=== PATIENT | male | born 1980 | race American Indian/Alaskan Native ===

== ENCOUNTER 2020-12-02 19:51 | Emergency (ER) | payer SELFPAY ==
[2020-12-02] MEDS ORDERED: DIPHTH,PERTUSS(ACELL),TET 0.5 ML DISP.SYRIN IM ONE ×2 (20:03→20:30)
[2020-12-02] MEDS ORDERED: ACETAMINOPHEN 325 MG TABLET (FP) PO ONE (20:06)
[2020-12-02 20:21] VITALS: TEMP 98.3; BMI 25.2
[2020-12-02] MEDS ORDERED: ACETAMINOPHEN 325 MG TABLET (FP) ONE (20:29)
[2020-12-02] MEDS ORDERED: CEPHALEXIN MONOHYDRATE 500 MG CAPSULE (UD) PO ONE (21:54)
[2020-12-02] MEDS ORDERED: KETOROLAC TROMETHAMINE 30 MG/1 ML VIAL IM ONE (21:54)
[2020-12-02] MEDS ORDERED: KETOROLAC TROMETHAMINE 30 MG/1 ML VIAL ONE (21:59)
[2020-12-02] MEDS ORDERED: CEPHALEXIN MONOHYDRATE 500 MG CAPSULE (UD) ONE (21:59)
[2020-12-02 22:25] VITALS: BP 121/81; PULSE 72
== END 2020-12-02 22:50 | disposition home or self-care (01) ==
LOC: JER 19:51
PROC: 0CQXXZ0 Repair of Lower Tooth, Single, External Approach (ICD-10-PCS; principal; 2020-12-02)
PROC: 3E0234Z Introduction of Serum, Toxoid and Vaccine into Muscle, Percutaneous Approach (ICD-10-PCS; 2020-12-02)
PROC: 3E0233Z Introduction of Anti-inflammatory into Muscle, Percutaneous Approach (ICD-10-PCS; 2020-12-02)
DX: S01.512A Laceration without foreign body of oral cavity, initial encounter (principal); S01.01XA Laceration without foreign body of scalp, initial encounter; M25.511 Pain in right shoulder
CPT/HCPCS: 70450-TC; 70486-TC; 73030-TC-RT-FY; 90715; 99285-25